=== PATIENT | female | born 1965 | race African-American/Black ===

== ENCOUNTER 2021-05-30 19:53 | Emergency (ER) | payer OTHER ==
[~2021-05-30] VITALS: Ht 152.4 cm; Wt 94.5 kg
[2021-05-30] MEDS ORDERED: LIDOCAINE (700MG/PATCH) PATCH. TD ONE (20:30)
[2021-05-30] MEDS ORDERED: KETOROLAC 60 MG/2 ML VIAL. IM ONE (20:30)
[2021-05-30] MEDS ORDERED: DEXAMETHASONE 4 MG TABLET PO ONE (20:30)
--- NOTE | 2021-05-30 20:32 | PHYS DOC ---
Past Medical History Past Surgical History: Hysterectomy Smoking Status: Never Smoker Alcohol Use: Occasionally General Adult EDM: Chief Complaint: LOWER BACK PAIN OR INJURY HPI: HPI: Patient is a 55 year old female who presents with left lower back pain that sharp shooting going down into the back of her leg and into her foot causing tingling in her left foot. States is been going on for last 4 days or so. She states it started as going in her lower back and into the buttock and is progressively gotten worse. She did just travel here by plane and has been carrying heavy bags of luggage and up on her feet a lot. Patient rates her pain a 10 out of 10 at this time. She denies loss of bowel bladder, injury, focal weakness, chest pain, shortness of breath, abdominal pain, nausea, vomiting diarrhea, fever, extremity swelling, change in skin color, change in skin temperature. No recent surgery. She has never had a blood clot. Has a history of a hysterectomy. Review of Systems: Review of Systems: Constitutional: Denies fever or chills. [] Eyes: Denies change in visual acuity. [] HENT: Denies nasal congestion or sore throat. [] Respiratory: Denies cough or shortness of breath. [] Cardiovascular: Denies chest pain or edema. [] GI: Denies abdominal pain, nausea, vomiting, bloody stools or diarrhea. [] : Denies dysuria. [] Musculoskeletal: + Left lower back pain or joint pain. + Left back of leg into foot pain [] Integument: Denies rash. [] Neurologic: Denies headache, focal weakness or sensory changes. + Left foot tingling [] Endocrine: Denies polyuria or polydipsia. [] Lymphatic: Denies swollen glands. [] Psychiatric: Denies depression or anxiety. [] Heart Score: C/O Chest Pain: No Physical Exam: PE: Constitutional: Well developed, well nourished, no acute distress, non-toxic appearance. [] HENT: Normocephalic, atraumatic, bilateral external ears normal, oropharynx moist, no oral exudates, nose normal. [] Eyes: PERRLA, EOMI, conjunctiva normal, no discharge. [] Neck: Normal range of motion, no tenderness, supple, no stridor. [] Cardiovascular:Heart rate regular rhythm, no murmur [] Lungs & Thorax: Bilateral breath sounds clear to auscultation [] Abdomen: Bowel sounds normal, soft, no tenderness, no masses, no pulsatile masses. [] Skin: Warm, dry, no erythema, no rash. [] Back: No tenderness, no CVA tenderness. [] Extremities: No tenderness, no cyanosis, no clubbing, ROM intact, no edema. [] Neurologic: Alert and oriented X 3, normal motor function, normal sensory function, no focal deficits noted. Left foot tingling but can feel pressure on her foot. [] Psychologic: Affect normal, judgement normal, mood normal. [] Current Patient Data: Vital Signs: Vital Signs Date Time Temp Pulse Resp B/P (MAP) Pulse Ox O2 Delivery O2 Flow Rate FiO2 05/30/21 19:58 98.7 93 16 140/65 (90) 100 Room Air 98.7 EKG: EKG: [] Radiology/Procedures: Radiology/Procedures: [] Impression: [facility] [address] [place] [address] IMAGING REPORT Signed PATIENT: FABI GARSIA ACCOUNT: [id number] : 1965 LOCATION: ER AGE: 55 SEX: F EXAM STATUS: REG ER ORD. PHYSICIAN: MARTIN WATERS APRN REASON: LOW BACK PAIN WITH PAIN DOWN LEFT LEG, NO KNOWN INJURY PROCEDURE: CT LUMBAR SPINE WO CONTRAST EXAM: CT lumbar spine without contrast. HISTORY: Low back pain and left lower extremity radiculopathy. TECHNIQUE: CT of the lumbar spine was performed without intravenous contrast. One or more of the following individualized dose reduction techniques were utilized for this examination: 1. Automated exposure control. 2. Adjustment of the mA and/or kV according to patient size. 3. Use of iterative reconstruction technique. COMPARISON: None. FINDINGS: Aortoiliac atherosclerotic calcifications are noted. No fractures are identified. Alignment is maintained. Degenerative disc disease is mild at L4-5. At L1-2, there is no stenosis. At L2-3, there is a moderate posterior disc bulge. There is no clear stenosis. At L3-4, there is a moderate posterior disc bulge. There is no significant stenosis. At L4-5, there is a moderate posterior disc bulge. 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 Neural foraminal stenosis is mild on the right greater than left. At L5-S1, there is a moderate to large central and left paracentral disc protrusion. It measures approximately 9 mm anteroposteriorly. Central canal stenosis appears mild. Left lateral recess stenosis is more moderate. There is no significant neural foraminal stenosis. There is mild bilateral facet osteoarthritis. IMPRESSION: 1. There appears to be a moderate to large disc herniation at L5-S1, resulting in mild central canal stenosis and more severe left lateral recess stenosis. MRI could more accurately assess for disc herniation and quantify stenosis. 2. Neural foraminal stenosis is mild bilaterally at L4-5. Electronically signed by: Collin Curry MD (05/30/2021 10:02 PM) [facility] DICTATED and SIGNED BY: MAGED CURRY MD DATE: 05/30/21 [id number] 0 Course & Med Decision Making: Course & Med Decision Making Pertinent Labs and Imaging studies reviewed. (See chart for details) See HPI. Alert and oriented x4. Ambulatory steady gait. Skin pink warm and dry. No extremity edema. Pedal pulse present. Cap refill less than 2 seconds. No saddle anesthesia. Speaks in full clear sentences. No joint swelling. No deformities. No focal bony spinal tenderness. No signs of trauma. CT of the lumbar shows a herniated disc and spinal stenosis. Patient is stable, ambulatory she has no focal weakness and she has not lost bowel bladder and has no saddle anesthesia. Patient is stable to go home. She to follow-up with her primary care doctor at that time. [] Amy Disclaimer: Amy Disclaimer: This electronic medical record was generated, in whole or in part, using a voice recognition dictation system. Departure Departure Impression: Primary Impression: Low back pain Qualified Codes: M54.42 - Lumbago with sciatica, left side Disposition: 01 HOME / SELF CARE / HOMELESS Condition: STABLE Patient Instructions: Herniated Disk, Sciatica with Rehab-SportsMed, Spinal Stenosis Additional Instructions: Follow-up with your primary care doctor when you get back home. Take medication as prescribed with food. Remember some of these medications can make you sleepy so you should not drive, work or drink any current alcohol on top of these medications. If you lose function of your leg or lose bowel or bladder you need to return to the emergency room. Scripts Hydrocodone Bit/Acetaminophen (HYDROCODONE-APAP 5-325 ) 1 Tab Tablet 1 TAB PO PRN Q6HRS PRN for PAIN, #20 TAB 0 Refills Prov: MARTIN WATERS APRN 05/30/21 Diclofenac Sodium (DICLOFENAC SODIUM) 50 Mg Tablet.dr 1 TAB PO BID, #20 TAB DO NOT TAKE OTHER NSAIDS WITH THIS MEDICATION Prov: MARTIN WATERS APRN 05/30/21 Cyclobenzaprine Hcl (CYCLOBENZAPRINE HCL) 5 Mg Tablet 1 TAB PO TID PRN for MUSCLE SPASMS, #30 TAB Prov: MARTIN WATERS APRN 05/30/21 MARTIN WATERS APRN May 30, 2021 20:32
[2021-05-30 21:33] LABS: BILIRUBIN,URINE NEGATIVE (NEG); CLARITY,URINE CLEAR; COLOR,URINE YELLOW; NITRITE,URINE NEGATIVE (NEG); PH,URINE 5.5 (<5.0-8.0); PROTEIN,URINE NEGATIVE (NEG-TRACE); UROBILINOGEN,URINE 0.2 mg/dL (0.2 mg/dL)
[2021-05-30 21:35] LABS: RBC,URINE 0 /HPF (0-2)
[2021-05-30 21:36] LABS: BACTERIA,URINE MODERATE /HPF (0-FEW); HYALINE CASTS, URINE FEW /HPF; YEAST,URINE PRESENT /HPF
--- NOTE | 2021-05-30 22:05 | RAD ---
EXAM: CT lumbar spine without contrast. HISTORY: Low back pain and left lower extremity radiculopathy. TECHNIQUE: CT of the lumbar spine was performed without intravenous contrast. One or more of the foll owing individualized dose reduction techniques were utilized for this examination: 1. Automated exposure control. 2. Adjustment of the mA and/or kV according to patient size. 3. Use of iterative reconstruction technique. COMPARISON: None. FINDINGS: Aortoiliac atherosclerotic calcifications are noted. No fractures are identified. Alignment is maintained. Degenerative disc disease is mild at L4-5. At L1-2, there is no stenosis. At L2-3, there is a moderate posterior disc bulge. There is no clear stenosis. At L3-4, there is a moderate posterior disc bulge. There is no significant stenosis. At L4-5, there is a moderate posterior disc bulge. 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 Neur al foraminal stenosis is mild on the right greater than left. At L5-S1, there is a moderate to large central and left paracentral disc protrusion. It measures appr oximately 9 mm anteroposteriorly. Central canal stenosis appears mild. Left lateral recess stenosis i s more moderate. There is no significant neural foraminal stenosis. There is mild bilateral facet ost eoarthritis. IMPRESSION: 1. There appears to be a moderate to large disc herniation at L5-S1, resulting in mild central canal stenosis and more severe left lateral recess stenosis. MRI could more accurately assess for disc rosa iation and quantify stenosis. 2. Neural foraminal stenosis is mild bilaterally at L4-5. Electronically signed by: Collin Curry MD (05/30/2021 10:02 PM) [facility]
[2021-05-30] MEDS ORDERED: METH4TAB2 PO (22:15)
[2021-05-30] MEDS ORDERED: DICL50TA4 PO (22:15)
[2021-05-30] MEDS ORDERED: CYCL5TAB PO (22:15)
[2021-05-30] MEDS ORDERED: HYDR-2761 PO (22:16)
[2021-05-30 22:30] VITALS: BP 183/74
[2021-05-30] MEDS ORDERED: LIDO:MAALOX 1:1 20 ML SINGLE DOSE. SWSW ONE (23:00)
== END 2021-05-30 22:31 | disposition home or self-care (01) ==
LOC: ER 19:53
DX: M54.42 Lumbago with sciatica, left side (principal); R20.2 Paresthesia of skin; Z90.710 Acquired absence of both cervix and uterus
CPT/HCPCS: 72131; 81001; 87086; 96372; 99285; J1885